=== PATIENT | female | born 1990 | race Caucasian/White ===

== ENCOUNTER → 2016-11-10 | Outpatient (CLI) | payer OTHER ==
--- NOTE | ~2016-11-10 | CR58 ---
[facility] A Service of [facility] & [facility] RADIOLOGY TEXT RESULTS PATIENT: VIVIANE MERAZ LOCATION: [facility] : 88 UNIT #: [id number] AGE: [address]: Isaias Angeles APRN SEX: F ORDER DR: [id number] [facility] [address] [place], [place] [address] [id number] O MR#: [id number] Acc #: [id number] NAME: VIVIANE MERAZ : 1990 SEX: F STUDY DATE/TIME: 11/10/2016 17:55 UNIT: [facility] ROOM: STUDY DESCRIPTION: CR Cervical Spine 2 or 3 Views Attending Physician: Isaias Angeles A.P.R.N. Ordering Physician: Isaias Angeles A.P.R.N. Primary Care Physician: Isaias Angeles A.P.R.N. MEDICAL IMAGING REPORT This report is preliminary unless electronic signature is present EXAM Cervical spine, 11/10/2016 HISTORY 25-year-old female patient with bilateral hand numbness, neck pain. Symptoms x1 month. FINDINGS AP, lateral and open mouth odontoid views demonstrate normal cervical alignment and curvature. Vertebral body heights and disc spaces are preserved. Posterior elements are intact. No evidence for central canal stenosis or cervical ribs. The odontoid appears normal. There is no prevertebral soft tissue swelling. IMPRESSION Negative cervical spine. Dictated by... Josr Higgins M.D. THIS IS AN ELECTRONICALLY VERIFIED REPORT Josr Higgins M.D. at 11/11/2016 1:23 PM Jose G TD: 11/11/2016 11:36 JOB #: [id number] MEDICAL IMAGING REPORT Page 1 of 1 COPY
== END | disposition home or self-care (01) ==
LOC: CRAD 17:38
DX: R20.0 Anesthesia of skin (principal)
CPT/HCPCS: 72040